=== PATIENT | male | born 1955 | race Caucasian/White ===

== ENCOUNTER 2016-07-03 15:22 | Emergency (ER) | payer OTHER ==
[2016-07-03 15:50] LABS: Hematocrit 43.2 % (42.0-52.0); Mean Cell Volume 92.7 fl (78-100); Mean Corpuscular Hemoglobin 32.2 pg (27-31); Mean Corpuscular Hgb Conc 34.7 g/dl (32-36); Mean Platelet Volume 9.9 fl (6.0-9.5); Neutrophil # 7.5 K/mm3 (1.3-6.0); Neutrophil % 68.7 % (42-75.0); Platelet Count 211 K/mm3 (150-450); Red Blood Count 4.66 M/mm3 (4.7-6.0); Red Cell Distribution Width 11.9 % (11.5-14.0); White Blood Count 10.9 K/mm3 (4.0-10.5)
[2016-07-03] MEDS ORDERED: ONDANSETRON HCL/PF 2 MG/ML VIAL IV ONE (15:56)
[2016-07-03] MEDS ORDERED: HYDROmorphone HCL 1 MG/ML DISP.SYRIN IV ONE ×2 (15:56→17:15)
[2016-07-03] MEDS ORDERED: ONDANSETRON HCL/PF 2 MG/ML VIAL ONE (15:58)
[2016-07-03] MEDS ORDERED: HYDROmorphone HCL 1 MG/ML DISP.SYRIN ONE ×2 (15:58→17:23)
--- NOTE | 2016-07-03 16:00 | ERNOTE ---
Abdominal HPI - Narrative Date of Service: 07/03/16 - General Chief Complaint: Abdominal Pain Time Seen by Provider: 07/03/16 15:49 Source: patient Exam Limitations: no limitations - Immun/Allergies/Home Medications Allergies/Adverse Reactions: Allergies No Known Allergies Allergy (Verified 06/07/13 14:00) Home Medications: HOME MEDICATIONS Cholecalciferol (Vitamin D3) [Vitamin D3] 1,000 unit PO Q7D 06/07/13 [Last Taken Unknown] Multivitamins [Multivitamin Rd] 1 cap PO DAILY 06/07/13 [Last Taken Unknown] Warfarin Sodium [Coumadin] 6 mg PO DAILY 06/07/13 [Last Taken Unknown] ALPRAZolam [Xanax] 0.25 mg PO HS PRN 07/03/16 [Last Taken Unknown] Ciprofloxacin HCl [Cipro] 500 mg PO BID #10 tablet 07/03/16 [Last Taken Unknown] Hydrocodone/Acetaminophen [Lortab 5-325 mg Tablet] 1 each PO QID PRN #14 tablet 07/03/16 [Last Taken Unknown] Lovastatin [Altoprev] 20 mg PO DAILY 07/03/16 [Last Taken Unknown] Ondansetron [Zofran Odt] 4 mg PO Q6H PRN #20 tab 07/03/16 [Last Taken Unknown] Psyllium Husk [Daily Fiber] 2 cap PO DAILY 07/03/16 [Last Taken Unknown] Tamsulosin HCl [Flomax] 0.4 mg PO DAILY@1800 #14 cap.sr.24h 07/03/16 [Last Taken Unknown] - History of Present Illness Narrative: 61-year-old white male presents with sudden onset of severe right flank pain. Pain started about an hour and a half ago. It is severe. He is nausea. No vomiting. Pain is worsening. He's never had this before. No hematuria. No fever or chills Timing: constant Quality: severe Review of Systems - Review of Systems Constitutional: Present: no symptoms reported EYE: Present: no symptoms reported ENT: Present: no symptoms reported Respiratory: Present: no symptoms reported Cardiology: Present: no symptoms reported Gastrointestinal/Abdominal: Present: nausea, abdominal pain, other - flank pain on the right. Absent: vomiting Genitourinary: Absent: frequency, pain, dysuria, hematuria Musculoskeletal: Present: no symptoms reported Skin: Present: no symptoms reported Neurological: Present: no symptoms reported Hematologic/Lymphatic: Present: no symptoms reported All Other Systems: All systems neg except as marked Physical Exam - Physical Exam General Appearance: Present: wd/wn, alert, mild distress Ears, Nose, Throat: Present: normal ENT inspection Neck: Present: normal inspection Respiratory: Present: no respiratory distress Cardiovascular/Chest: Present: regular rate, rhythm, no murmur, bradycardia Gastrointestinal/Abdominal: Present: normal bowel sounds, nontender, nondistended, soft. Absent: tenderness Back Exam: Present: normal inspection Extremity Exam: Present: normal inspection Neurological Exam: Present: alert, oriented, normal mood/affect, no motor/ sensory deficits Skin Exam: Present: normal color, warm/dry. Absent: cyanosis ED Progress - Results and Orders Patient's Lab Results:: I have reviewed the patient's lab results. - Vital Signs Patient's Vital Signs:: I have reviewed the patient's vital signs. Vital Signs: Vital Signs 07/03/16 15:30 Temperature 35.8 C L Pulse Rate 49 L Respiratory 18 Rate Blood Pressure 160/93 O2 Sat by Pulse 100 Oximetry - CT/Ultrasound CT/Ultrasound Narrative: I have reviewed the CT report of the CT abdomen and pelvis per radiologist - Progress/Reassessment Chief Complaint: Abdominal Pain Progress:: Improved Progress Note-Subjective: 07/03/16 17:14 pt. was given Dilaudid 0.5 mill him IV, Zofran IV. He improved. Vital signs stable. I will discharge him home. Follow-up with primary care physician or urology. Return if problems. Plan - Plan Plan: Discharge home. Follow-up with primary care physician. PCP can refer to urology if patient does not pass the ureteral stone. Return here if any problems. Departure - Departure Clinical Impression: Ureteral stone with hydronephrosis Disposition: Home self-care Condition: Stable Instructions: Renal Colic, [id number], Kidney Stones, [id number] Additional Instructions: Return to ED if any problems such as fever, vomiting or intractable pain Referrals: Yasmany Henry MD [Primary Care Provider] - Prescriptions: Ciprofloxacin HCl [Cipro] 500 mg PO BID #10 tablet Hydrocodone/Acetaminophen [Lortab 5-325 mg Tablet] 1 each PO QID PRN #14 tablet PRN Reason: Pain Ondansetron [Zofran Odt] 4 mg PO Q6H PRN #20 tab PRN Reason: Nausea Tamsulosin HCl [Flomax] 0.4 mg PO DAILY@1800 #14 cap.sr.24h
[2016-07-03 16:11] LABS: Albumin * 4.4 gm/dl (3.4-5.0); Anion Gap 13.4 mmol/L (6.8-13.8); Bilirubin, Total 0.4 mg/dL (0.0-1.1); Ca. Corrected For Albumin 8.3 mg/dL (8.4-10.2); Calcium * 8.9 mg/dL (7.9-10.9); Carbon Dioxide 26.2 mmol/L (24-32.6); Potassium 4.6 mmol/L (3.4-4.6); Total Protein 7.7 gm/dL (6.2-8.2)
[2016-07-03 17:26] LABS: INR 3.17 INR (0.90-1.10)
[2016-07-03 17:31] LABS: Urine Bilirubin Negative (NEGATIVE); Urine Blood 250 /ul (NEGATIVE); Urine Ketone 15 mg/dL (NEGATIVE); Urine Nitrite Negative (NEGATIVE); Urine Protein Negative (NEGATIVE); Urine Urobilinogen Normal (NORMAL)
[2016-07-03 17:55] LABS: Urine Appearance Clear; Urine Bacteria TRACE; Urine Color Yellow; Urine Mucus Moderate - 2+; Urine Other Crystal Few - 1+ /hpf; Urine RBC 25-50 /hpf (0-5); Urine WBC None Seen /hpf (0-5)
[2016-07-03 18:03] VITALS: BP 161/79
== END 2016-07-03 18:02 | disposition home or self-care (01) ==
LOC: ER 15:22
DX: N13.2 Hydronephrosis with renal and ureteral calculous obstruction (principal)